=== PATIENT | male | born 1970 | race Caucasian/White ===

== ENCOUNTER 2017-03-10 16:09 | Emergency (ER) | payer OTHER, MEDICAID ==
[2017-03-10] MEDS ORDERED: KETOROLAC 30 MG/1 ML SDV IVP ONE (16:37)
[2017-03-10] MEDS ORDERED: METOCLOPRAMIDE 10 MG/2 ML VIAL IVP ONE (16:37)
[2017-03-10] MEDS ORDERED: DEXAMETHASONE 10 MG/ML VIAL IVP ONE (16:37)
[2017-03-10] MEDS ORDERED: DIAZEPAM 10 MG/2 ML SYR IVP ONE (16:38)
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
[2017-03-10 17:55] VITALS: BP 130/92; PULSE 89; RESP 14; TEMP 97.5; O2SAT 98
== END 2017-03-10 17:50 | disposition home or self-care (01) ==
DX: S19.9XXA Unspecified injury of neck, initial encounter (principal); S49.91XA Unspecified injury of right shoulder and upper arm, initial encounter; G43.009 Migraine without aura, not intractable, without status migrainosus; Z79.82 Long term (current) use of aspirin; V49.49XA Driver injured in collision with other motor vehicles in traffic accident, initial encounter; Y92.410 Unspecified street and highway as the place of occurrence of the external cause; Y99.8 Other external cause status; Y93.89 Activity, other specified
CPT/HCPCS: 96374; A4565; J1100; J1885; J2765

== ENCOUNTER → 2017-04-07 | Outpatient (CLI) | payer OTHER, MEDICAID | LOC: FIMAGING 13:05 | PROVIDERS: ATTEND Physician Assistant | DX: M25.511 Pain in right shoulder (principal); M75.81 Other shoulder lesions, right shoulder; M24.111 Other articular cartilage disorders, right shoulder ==